=== PATIENT | female | born 1975 | race Caucasian/White ===

== ENCOUNTER 2019-01-28 11:58 | Emergency (ER) | payer SELFPAY ==
[2019-01-28] MEDS ORDERED: Dicyclomine 20 MG TAB ONE (12:21)
[2019-01-28] MEDS ORDERED: Ondansetron ODT 4 MG TAB ONE (12:21)
[2019-01-28 12:32] LABS: #Basophils 0.1 thou/uL (0.0-0.2); #Lymphocytes 2.2 thou/uL (1.20-3.40); #Monocytes 0.5 thou/uL (0.11-0.59); #Neutrophils 8.1 thou/uL (1.40-6.50); %Basophils 0.7 % (0.0-1.0); %Eosinophils 0.3 % (0.0-10.0); %Lymphocytes 20.3 % (21.0-51.0); %Monocytes 4.8 % (0.0-10.0); %Neutrophils 73.9 % (42.0-75.0); Hemoglobin 13.6 g/dL (12.0-16.0); Mean Corpuscular HGB CONC 31.2 g/dL (32.0-36.0); Mean Corpuscular Hemoglobin 29.4 pg (27.0-31.0); Mean Corpuscular Volume 94.2 fL (78.0-98.0); Mean Platelet Volume 6.6 fL (7.4-10.4); Platelet Count 330 thou/uL (130-400); RBC Distribution Width 12.5 % (11.5-14.5); Red Blood Cell (RBC) Count 4.64 mill/uL (4.20-5.40); White Blood Cell (WBC) Count 10.9 thou/uL (4.8-10.8)
[2019-01-28 12:46] LABS: Bilirubin Negative (Negative); Blood, Urine Negative (Negative); Clarity Clear (Clear); Glucose, Urine (Dipstick) Negative (Negative); Leukocyte Negative (Negative); Nitrite Negative (Negative); Protein, Urine (Dipstick) Trace mg/dL (Neg-Trace); Urobilinogen 0.2 mg/dL (Less than 2)
[2019-01-28 12:49] LABS: ALT (SGPT) 14 U/L (8-55); AST (SGOT) 15 U/L (5-34); Albumin 4.3 g/dL (3.5-5.0); Alkaline Phosphatase 93 U/L (40-150); Anion Gap 14 mmol/L (10-20); BUN (Urea Nitrogen) 18 mg/dL (7.0-18.7); Bilirubin, Total 0.2 mg/dL (0.2-1.2); Calc. Creatinine Clearance 0 mL/min (70-130); Calcium 9.9 mg/dL (7.8-10.44); Carbon Dioxide 24 mmol/L (22-29); Chloride 108 mmol/L (98-107); Estimated GFR-MDRD 69; Glucose 102 mg/dL (70-105); Potassium 4.1 mmol/L (3.5-5.1); Protein, Total 7.3 g/dL (6.0-8.3); Sodium 142 mmol/L (136-145)
[2019-01-28] MEDS ORDERED: Ibuprofen 800 MG TAB ONE (13:01)
== END 2019-01-28 13:08 | disposition home or self-care (01) ==
LOC: BURERS 11:58
DX: K52.9 Noninfective gastroenteritis and colitis, unspecified (principal); F41.9 Anxiety disorder, unspecified; Z79.899 Other long term (current) drug therapy
CPT/HCPCS: 36415; 80053; 81003; 85025; Q0162

== ENCOUNTER 2019-02-17 12:36 | Emergency (ER) | payer SELFPAY ==
[2019-02-17] MEDS ORDERED: Sulfameth/Trimethoprim DS 800-160mg TAB ONE (12:58)
[2019-02-17] MEDS ORDERED: Dexamethasone 4 MG TAB ONE (12:58)
== END 2019-02-17 13:03 | disposition home or self-care (01) ==
LOC: BURERS 12:36
DX: J01.90 Acute sinusitis, unspecified (principal); F31.9 Bipolar disorder, unspecified; F41.9 Anxiety disorder, unspecified
CPT/HCPCS: 99283; J8540

== ENCOUNTER 2019-06-11 14:06 | Emergency (ER) | payer SELFPAY ==
[2019-06-11] MEDS ORDERED: Sulfameth/Trimethoprim DS 800-160mg TAB ONE (14:32)
[2019-06-11] MEDS ORDERED: Dexamethasone 4 MG TAB ONE (14:32)
== END 2019-06-11 14:37 | disposition home or self-care (01) ==
LOC: BURERS 14:06
DX: J01.90 Acute sinusitis, unspecified (principal); T78.49XA Other allergy, initial encounter; F41.9 Anxiety disorder, unspecified; F31.9 Bipolar disorder, unspecified; Z79.899 Other long term (current) drug therapy
CPT/HCPCS: 99283; J8540

== ENCOUNTER 2019-06-17 21:30 | Emergency (ER) | payer SELFPAY | END 2019-06-17 22:00 | disposition home or self-care (01) | LOC: BURERS 21:30 | DX: B34.9 Viral infection, unspecified (principal); F43.9 Reaction to severe stress, unspecified; F41.9 Anxiety disorder, unspecified; F31.9 Bipolar disorder, unspecified; Z87.442 Personal history of urinary calculi; Z79.899 Other long term (current) drug therapy | CPT/HCPCS: 99281 ==

== ENCOUNTER 2019-08-10 15:32 | Emergency (ER) | payer SELFPAY | END 2019-08-10 16:30 | disposition home or self-care (01) | LOC: BURERS 15:32 | DX: M26.602 Left temporomandibular joint disorder, unspecified (principal); F41.9 Anxiety disorder, unspecified; F31.9 Bipolar disorder, unspecified; Z79.899 Other long term (current) drug therapy | CPT/HCPCS: 99282 ==